=== PATIENT | female | born 1985 | race African-American/Black ===

== ENCOUNTER 2016-12-02 17:16 | Emergency (ER) | payer OTHER ==
--- NOTE | ~2016-12-02 | CT4 ---
[facility] A Service of [facility] & [facility] RADIOLOGY TEXT RESULTS PATIENT: ROLAN YEN LOCATION: SED : 85 UNIT #: [id number] AGE: [address]: PAVAN GRAFF SEX: F ORDER DR: [id number] [address] [address] [id number] E MR#: [id number] Acc #: [id number] NAME: ROLAN YEN. : 1985 SEX: F STUDY DATE/TIME: 12/02/2016 17:53 UNIT: SED ROOM: STUDY DESCRIPTION: CT Abd and Pelv Wo Cont Attending Physician: Pavan Graff Referring Physician: Pavan Graff Ordering Physician: Physician Non-Staff Primary Care Physician: [facility], [facility]. MEDICAL IMAGING REPORT This report is preliminary unless electronic signature is present. EXAM CT abdomen and pelvis without contrast. HISTORY 31-year-old female right lower quadrant pain since this morning, diarrhea, cramping. History of kidney stones. TECHNIQUE Axial images performed through the abdomen and pelvis without contrast. Multiplanar reconstructed images reviewed at a workstation. This CT exam was performed with one or more of the following radiation dose reduction techniques: automatic exposure control, adjustment of mA and/or kV according to patient size, and iterative reconstruction. FINDINGS Lung bases unremarkable. Liver, spleen, gallbladder, pancreas and adrenal glands unremarkable. There is a small left renal stone. No definite stone is seen along the course of the ureters. There is mild prominence of the left renal collecting system. Calcifications seen within the pelvic floor appears to be outside the lumen of the bladder. The visualized GI tract to include the appendix is normal. The retroperitoneum unremarkable. PELVIS: Bladder unremarkable. Fluid noted within the uterine cavity may indicate active menses. There is a small amount of free fluid posterior cul-de-sac. Osseous structures and soft tissues appear normal. IMPRESSION 1. No definite acute intraabdominal or intrapelvic pathology. Patient does have a small nonobstructing left renal stone. There is also mild prominence of the left renal pelvis but no discernible stone seen along the course of the ureters or within the bladder. There STS. [facility] A Service of [facility] & [facility] RADIOLOGY TEXT RESULTS PATIENT: ROLAN YEN LOCATION: SED : 85 UNIT #: [id number] AGE: [address]: PAVAN GRAFF SEX: F ORDER DR: are also several pelvic calcifications which are felt to represent vascular calcifications. 2. The appendix is normal. 3. Small amount of fluid in the endometrial cavity may indicate active menses as well as a small amount of free fluid in the posterior pelvis. Dictated by... Rosario Tidwell M.D. THIS IS AN ELECTRONICALLY VERIFIED REPORT Rosario Tidwell M.D. at 12/03/2016 10:52 PM RAY/eleni TD: 12/03/2016 09:34 JOB #: [id number] MEDICAL IMAGING REPORT Page 1 of 1
[2016-12-02 17:30] LABS: URINE SOURCE CLEAN CATCH
[2016-12-02 17:32] LABS: URINE APPEARANCE CLEAR; URINE BILIRUBIN NEG (NEG); URINE BLOOD NEG (NEG); URINE COLOR YELLOW; URINE GLUCOSE NEG (NORM); URINE KETONE TRACE (NEG); URINE LEUKOCYTE ESTERASE NEG (NEG); URINE NITRATE NEG (NEG); URINE SPECIFIC GRAVITY 1.015 (1.003-1.035)
[2016-12-02 17:34] LABS: MICRO INDICATED? NO; URINE PROTEIN NEG (NEG)
[2016-12-02 17:52] LABS: BASOPHIL% 0.5 % (0-2.5); DIFF IND NO; EOSINOPHIL# 0.1 X10e3 (0-0.7); EOSINOPHIL% 0.9 % (0.0-7.0); HEMATOCRIT 38.5 % (35.0-45.0); HEMOGLOBIN 12.6 gm/dL (12.0-16.0); LYMPHOCYTE# 2.6 X10e3 (1.0-3.5); LYMPHOCYTE% 34.9 % (17.0-45.0); MEAN CELL VOLUME 92.5 FL (83-96); MEAN CORPUSCULAR HEMOGLOBIN 30.3 PG (28-34); MEAN CORPUSCULAR HGB CONC 32.8 g/dL (30-36); MONOCYTE# 0.7 X10e3 (0-1.0); MONOCYTE% 9.5 % (3.0-12.0); NEUTROPHIL% 54.2 % (40-75); PLATELET COUNT 213 X10e3 (140-420); RED BLOOD COUNT 4.16 X10e (3.90-5.30); RED CELL DISTRIBUTION WIDTH 13.9 % (11.0-15.5); WHITE BLOOD COUNT 7.4 X10e3 (4.0-10.5)
[2016-12-02 18:00] LABS: ALBUMIN SERUM 4.6 g/dL (3.5-5.0); BILIRUBIN,TOTAL 0.5 mg/dL (0.2-2.0); BUN/CREATININE RATIO 16.66; CALCIUM SERUM 9.5 mg/dL (8.4-10.2); CREATININE SERUM 0.6 mg/dL (0.6-1.4); GLOM FILT RATE Estimated 140.8 mL/min (>60); POTASSIUM 3.5 mmol/L (3.5-5.1); PROTEIN TOTAL SERUM 7.4 g/dL (6.0-8.3)
== END 2016-12-02 19:15 | disposition home or self-care (01) ==
LOC: SED 17:16
PROVIDERS: Nurse Practitioner
DX: R10.31 Right lower quadrant pain (principal); R10.32 Left lower quadrant pain; R19.7 Diarrhea, unspecified; R11.0 Nausea; F17.210 Nicotine dependence, cigarettes, uncomplicated; Z87.442 Personal history of urinary calculi
CPT/HCPCS: 36415; 74176; 80053; 81003; 84703; 85025; 96361; 96374; 96375; 99284; J2270; J2405

== ENCOUNTER 2017-02-02 22:03 | Emergency (ER) | payer OTHER ==
--- NOTE | ~2017-02-02 | CT4 ---
[facility] A Service of [facility] RADIOLOGY TEXT RESULTS PATIENT: ROLAN YEN LOCATION: SED : 85 UNIT #: [id number] AGE: [address]: Severino Barlow DO SEX: F ORDER DR: [id number] [place] [id number] E MR#: [id number] Acc #: [id number] NAME: ROLAN EYN : 1985 SEX: F STUDY DATE/TIME: 02/02/2017 23:45 UNIT: SED ROOM: STUDY DESCRIPTION: CT Abd and Pelv Wo Cont Attending Physician: Severino Barlow Ordering Physician: Severino Barlow Primary Care Physician: [facility] MEDICAL IMAGING REPORT This report is preliminary unless electronic signature is present. EXAM CT abdomen and pelvis without contrast INDICATION Pain with urination. Generalized abdominal pain for the past [address] of the abdomen and pelvis. This CT exam was performed with one or more of the following radiation dose reduction techniques: automatic exposure control, adjustment of mA and/or kV according to patient size, and iterative reconstruction. COMPARISON 12/02/2016 FINDINGS The included lung bases are clear. The liver, spleen, adrenal glands, pancreas and gallbladder have an unremarkable unenhanced appearance. Moderate colonic stool burden. Appendix is normal. No radiodense urinary system calculus. PELVIS WITHOUT CONTRAST: No pelvic mass or fluid. No radiodense bladder calculus. No aggressive appearing bone lesion. IMPRESSION 1. No acute findings. No radiodense urinary system calculus. Normal appendix. 2. Moderate colonic stool. 1. Dictated by... [facility] A Service [facility] RADIOLOGY TEXT RESULTS PATIENT: ROLAN YEN LOCATION: SED : 85 UNIT #: [id number] AGE: [address]: Severino Barlow DO SEX: F ORDER DR: Jose Renteria M.D. THIS IS AN ELECTRONICALLY VERIFIED REPORT Jose Renteria M.D. at 02/03/2017 9:57 PM Margie TD: 02/03/2017 08:59 JOB #: [id number] MEDICAL IMAGING REPORT Page 1 of 1
[2017-02-02 23:14] LABS: URINE SOURCE CLEAN CATCH
[2017-02-02 23:17] LABS: URINE APPEARANCE CLEAR; URINE BILIRUBIN NEG (NEG); URINE BLOOD 3+ (NEG); URINE COLOR YELLOW; URINE GLUCOSE NEG (NORM); URINE KETONE NEG (NEG); URINE LEUKOCYTE ESTERASE NEG (NEG); URINE NITRATE NEG (NEG); URINE PROTEIN NEG (NEG); URINE UROBILINOGEN 0.2 MG/DL (NORM)
[2017-02-02 23:19] LABS: BASOPHIL% 0.5 % (0-2.5); DIFF IND NO; EOSINOPHIL% 0.5 % (0.0-7.0); HEMATOCRIT 34.2 % (35.0-45.0); HEMOGLOBIN 11.4 gm/dL (12.0-16.0); LYMPHOCYTE# 2.6 X10e3 (1.0-3.5); LYMPHOCYTE% 27.7 % (17.0-45.0); MEAN CELL VOLUME 92.5 FL (83-96); MEAN CORPUSCULAR HEMOGLOBIN 30.9 PG (28-34); MEAN CORPUSCULAR HGB CONC 33.4 g/dL (30-36); MEAN PLATELET VOLUME 8.5 FL (6.5-11.5); MONOCYTE# 0.8 X10e3 (0-1.0); MONOCYTE% 8.1 % (3.0-12.0); NEUTROPHIL% 63.2 % (40-75); PLATELET COUNT 179 X10e3 (140-420); RED CELL DISTRIBUTION WIDTH 14.2 % (11.0-15.5); WHITE BLOOD COUNT 9.4 X10e3 (4.0-10.5)
[2017-02-02 23:22] LABS: MICRO INDICATED? YES
[2017-02-02 23:23] LABS: CULTURE INDICATED? NO; URINE BACTERIA NEG (NEG); URINE RBC 100-200 /[HPF] (0-2); URINE SQUAMOUS EPITHELIAL CELL OCCAS /[HPF]
[2017-02-02 23:24] LABS: URINE MUCUS PRESENT
[2017-02-02 23:35] LABS: ALBUMIN SERUM 3.9 g/dL (3.5-5.0); BILIRUBIN, DIRECT 0.1 mg/dL (0.0-0.2); BILIRUBIN,INDIRECT 0.3 mg/dL (0.0-0.9); BILIRUBIN,TOTAL 0.4 mg/dL (0.2-2.0); BUN/CREATININE RATIO 28.75; CALCIUM SERUM 9.4 mg/dL (8.4-10.2); CREATININE SERUM 0.8 mg/dL (0.6-1.4); POTASSIUM 4.1 mmol/L (3.5-5.1); PROTEIN TOTAL SERUM 6.7 g/dL (6.0-8.3)
== END 2017-02-03 00:56 | disposition home or self-care (01) ==
LOC: SED 22:03
PROVIDERS: Emergency Medicine
DX: R10.9 Unspecified abdominal pain (principal); Z87.442 Personal history of urinary calculi
CPT/HCPCS: 36415; 74176; 80048; 80076; 81003; 83690; 84703; 85025; 96361; 96374; 96375; 99284; J1885; J2270; J2405; J2550

== ENCOUNTER 2017-04-07 17:55 | Emergency (ER) | payer OTHER | END 2017-04-07 18:43 | disposition home or self-care (01) | LOC: SED 17:55 | DX: B34.9 Viral infection, unspecified (principal); J32.9 Chronic sinusitis, unspecified; F17.200 Nicotine dependence, unspecified, uncomplicated | CPT/HCPCS: 99283 ==